=== PATIENT | female | born 1955 | race Caucasian/White ===

== ENCOUNTER 2021-11-08 02:00 | Emergency (ER) | payer MEDICARE, SELFPAY ==
[2021-11-08 02:10] VITALS: BP 162/74; PULSE 76; RESP 20; TEMP 36.6; O2SAT 97; BMI 26.5
[2021-11-08 02:30] VITALS: BP 155/65; PULSE 90; O2SAT 96
--- NOTE | 2021-11-08 02:34 | ED_ITS ---
HPI - Neck Pain/Injury General Chief Complaint: Neck Pain/Injury Stated Complaint: Shoulder and neck pain left side Time Seen by Provider: 11/08/21 02:08 Source: patient Mode of arrival: Ambulatory Limitations: no limitations History of Present Illness HPI Narrative: Patient is a 66-year-old female who is here for evaluation of left neck and shoulder pain. She has had issues with herniated disc in her neck in the past and has had a surgery without any effusions. There is not 1 specific event that caused the symptoms however she states that they have been traveling recently she thought it was just how she was sitting and sleeping in the car. She describes pain with palpation and movement to her left shoulder. Some aching down into her left arm. She denies any chest pain. Has tried Tylenol and ibuprofen at home without much improvement. Symptoms been going on for the past 5 days. Related Data Previous Rx's Medication Instructions Recorded cyclobenzaprine 10 mg tablet 10 mg PO TID PRN #7 tab 11/08/21 hydrocodone 5 mg-acetaminophen 325 1 tab PO Q4-6H PRN #7 tab 11/08/21 mg tablet Allergies Allergy/AdvReac Type Severity Reaction Status Date / Time Penicillins Allergy Verified 11/08/21 02:37 Sulfa (Sulfonamide Allergy Verified 11/08/21 02:37 Antibiotics) Review of Systems Constitutional Constitutional: Reports system reviewed and no additional complaints, except as documented Cardiovascular Cardiovascular: Reports system reviewed and no additional complaints, except as documented Respiratory Respiratory: Reports system reviewed and no additional complaints, except as documented Musculoskeletal Musculoskeletal: Reports system reviewed and no additional complaints, except as documented Integumentary/Breasts Skin/Breast: Reports system reviewed and no additional complaints, except as documented Neurologic Neurologic: Reports system reviewed and no additional complaints, except as documented Hematologic/Lymphatic On Anticoagulants: No Patient History Medical History Cervical spinal stenosis Social History Smoking Status: Never smoker Smoking Status: Never smoker Substance Use Type: marijuana Exam Initial Vital Signs Initial Vital Signs: Vital Signs Temperature 97.9 F 11/08/21 02:10 Pulse Rate 76 11/08/21 02:10 Respiratory Rate 20 11/08/21 02:10 Blood Pressure 162/74 H 11/08/21 02:10 Pulse Oximetry 97 11/08/21 02:10 Const General: cooperative and comfortable HENAK Head: normal to inspection Resp Effort & Inspection: normal respiratory effort Cardio Rate: regular rate Back/Spine/Pelvis Other: No midline cervical spinal tenderness. Skin General: no rashes or lesions noted Neuro General: patient alert and patient awake Sensory Exam: no sensory deficits noted Extrem Other: She has reproducible tenderness to palpation over the left trapezius/latissimus dorsi muscle. Course Orders Ordered: Discontinued Medications Hydrocodone Bitart/Acetaminophen (Hydrocodone/Acet 5/325 Prepack) 1 bottle MISC SEEINSTR ONE Stop: 11/08/21 02:36 Last Admin: 11/08/21 02:42 Dose: 1 bottle Documented by: MARIA GUADALUPE Cyclobenzaprine HCl (Cyclobenzaprine 10 Mg Prepack) 1 bottle MISC SEEINSTR ONE Stop: 11/08/21 02:36 Last Admin: 11/08/21 02:42 Dose: 1 bottle Documented by: MARIA GUADALUPE Vital Signs Vital signs: Vital Signs - 8 hr 11/08/21 02:10 11/08/21 02:30 Temperature 97.9 F Pulse Rate 76 90 Respiratory Rate 20 Blood Pressure 162/74 H 155/65 H Pulse Oximetry 97 96 MDM - Neck Pain/Injury MDM Narrative Medical decision making narrative: Patient has left-sided neck symptoms for the past 5 days. No fevers. Low suspicion for ACS. The location of the discomfort is not midline and not in the distribution of where why I would expect a acute cervical spinal nerve pathology. I suspect that her symptoms are more muscular in origin specifically over the trapezius muscle on the left. No indication for radiologic studies there was not 1 specific incident that caused the pain. Was sent home with muscle relaxers and other symptom treatment. [place] and when she returns home contact her primary doctor for further evaluatio n. She was given return precautions. She expressed understanding agreement. Discharge Plan Departure Patient Disposition: Home Clinical Impression: Strain of neck muscle Instructions: Neck Sprain Activity Restrictions/Additional Instructions: I do recommend that you take all of the medications as directed. You can continue with other conservative measures such as Tylenol and ibuprofen and heat and ice and massage. Contact your primary doctor when you return home. Return to the emergency department for any new or worsening symptoms. Prescriptions: New hydrocodone-acetaminophen 5-325 mg tablet 1 tab PO Q4-6H PRN (Reason: pain) Qty: 7 0RF cyclobenzaprine 10 mg tablet 10 mg PO TID PRN (Reason: muscle spasm) Qty: 7 0RF
[2021-11-08] MEDS: HYDROCODONE/ACET 5/325 PREPACK 1 BOTTLE MISC (02:42)
[2021-11-08] MEDS: CYCLOBENZAPRINE 10 MG PREPACK 1 BOTTLE MISC (02:42)
== END 2021-11-08 02:54 | disposition home or self-care (01) ==
PROVIDERS: Emergency Provider Emergency Medicine
DX: S16.1XXA Strain of muscle, fascia and tendon at neck level, initial encounter (principal); X58.XXXA Exposure to other specified factors, initial encounter
CPT/HCPCS: 99281